=== PATIENT | female | born 1950 | race Caucasian/White ===

== ENCOUNTER 2023-11-22 18:45 | Emergency (ER) | payer BC ==
[~2023-11-22] VITALS: Ht 160 cm; Wt 77.1 kg
[2023-11-22 19:49] LABS: BASOPHILS # (AUTO) 0.1 X10'3 (0-0.2); BASOPHILS % (AUTO) 1.1 % (0-1); EOSINOPHILS # (AUTO) 0.1 X10'3 (0-0.9); EOSINOPHILS % (AUTO) 1.2 % (0-6); HEMATOCRIT 40.6 % (35.0-45.0); HEMOGLOBIN 13.9 g/dl (12.0-16.0); LYMPHOCYTES # (AUTO) 1.2 X10'3 (1.1-4.8); LYMPHOCYTES % (AUTO) 17.4 % (21-51); MEAN CORPUSCULAR HEMOGLOBIN 31.8 PG (27.0-31.0); MEAN CORPUSCULAR HGB CONC 34.2 g/dL (33.0-36.5); MEAN CORPUSCULAR VOLUME 93.1 FL (78-98); MEAN PLATELET VOLUME 9.3 FL (7.4-10.4); MONOCYTES # (AUTO) 0.7 X10'3 (0-0.9); MONOCYTES % (AUTO) 10.3 % (2-12); PLATELET COUNT 151 X10'3 (140-440); RED BLOOD COUNT 4.36 X10'6 (4.20-5.60); RED CELL DISTRIBUTION WIDTH 13.3 % (11.5-14.5); WHITE BLOOD COUNT 7.2 X10'3 (4.5-11.0)
[2023-11-22 20:03] LABS: ALANINE AMINOTRANSFERASE 27 U/L (12-78); ALBUMIN 4.2 G/DL (3.4-5.0); ALBUMIN/GLOBULIN RATIO 1.2 (1.1-1.5); ALKALINE PHOSPHATASE 81 IU/L (46-116); ANION GAP 8 (8-16); ASPARTATE AMINO TRANSFERASE 20 U/L (10-37); BILIRUBIN,TOTAL 0.5 MG/DL (0.1-1.0); BLOOD UREA NITROGEN 8 MG/DL (7-18); BUN/CREATININE RATIO 13.6 (10.0-20.0); CALCIUM 9.7 MG/DL (8.5-10.1); CHLORIDE 99 MMOL/L (99-107); CREATININE 0.59 MG/DL (0.40-0.90); GLUCOSE 108 MG/DL (70-104); LIPASE 23 U/L (16-77); POTASSIUM 3.9 MMOL/L (3.5-5.1); SODIUM 133 MMOL/L (135-145); TOTAL CARBON DIOXIDE 26.3 MMOL/L (24-32); TOTAL PROTEIN 7.8 G/DL (6.4-8.2); eCRCL 71 ML/MIN; eGFR > 90 ML/MIN
[2023-11-22] MEDS ORDERED: iohexol 300mg/ml 100ml inj. ONE (20:13)
[2023-11-22 20:27] LABS: MAGNESIUM 1.8 MG/DL (1.5-2.4); PRO BRAIN NATRIURETIC PEPTIDE 118 PG/ML (0-125)
[2023-11-22 20:32] LABS: BILIRUBIN,URINE NEGATIVE (Neg); CLARITY,URINE CLEAR (Clear); COLOR,URINE STRAW (Yellow); GLUCOSE, URINE NEGATIVE (Neg); KETONES,URINE NEGATIVE (Neg); LEUKOCYTE ESTERASE ,URINE SMALL (Neg); NITRITES, URINE NEGATIVE (Neg); OCCULT BLOOD,URINE NEGATIVE (Neg); PROTEIN,URINE NEGATIVE (Neg); UROBILINOGEN,URINE 0.2 E.U/dL (0.2-1.0)
[2023-11-22 20:33] LABS: UA COLLECTION TYPE CLN CATCH MIDSTREAM
[2023-11-22 20:40] LABS: BACTERIA,URINE FEW /HPF (Neg); MUCUS STRANDS NONE SEEN /LPF (Neg); RBC,URINE 0-2 /HPF (0-2); SQUAMOUS EPITHELIAL CELL,UR FEW /LPF (FEW)
[2023-11-22 20:44] LABS: TRANSITIONAL EPI CELLS,URINE FEW /HPF
[2023-11-22 21:53] VITALS: BP 137/70; PULSE 66; RESP 16; TEMP 97.8; O2SAT 99
== END 2023-11-22 21:56 | disposition home or self-care (01) ==
LOC: ER 18:50
DX: R10.31 Right lower quadrant pain (principal); I10 Essential (primary) hypertension; Z88.2 Allergy status to sulfonamides; Z88.1 Allergy status to other antibiotic agents; Z88.5 Allergy status to narcotic agent; Z98.890 Other specified postprocedural states; Z90.710 Acquired absence of both cervix and uterus
CPT/HCPCS: 36415; 71045; 74177; 80053; 81001; 83605; 83690; 83735; 83880; 84484; 85025; 87088; 93005; 99285; J3490; Q9967

== ENCOUNTER 2023-12-18 09:59 | Outpatient (CLI) | payer BC | END 2023-12-18 23:59 | disposition home or self-care (01) | LOC: RAD 09:59 | PROVIDERS: ATTEND Family Medicine | DX: I08.8 Other rheumatic multiple valve diseases (principal) | CPT/HCPCS: 93306 ==

== ENCOUNTER 2024-03-05 10:24 | Outpatient (CLI) | payer BC | END 2024-03-05 23:59 | disposition home or self-care (01) | LOC: VAS 10:24 | PROVIDERS: ATTEND Family Medicine | DX: M79.605 Pain in left leg (principal) | CPT/HCPCS: 93971 ==

== ENCOUNTER 2025-03-21 14:07 | Emergency (ER) | payer BC, OTHER ==
[~2025-03-21] VITALS: Ht 170.2 cm; Wt 80.2 kg
[2025-03-21 14:14] VITALS: TEMP 98.2
--- NOTE | 2025-03-21 14:21 | ELECTROCARDIOGRAPH REPORT ---
[facility] Test Date: 2025-03-21 Test Time: 14:16:43 Pat Name: DEREK REGAN Department: [facility]ER Patient ID: [facility]-[id number] Room: Gender: F Rehab Nursing Tech: : [id number] Requested By: JOSE LUIS RIVERA Order Number: [id number] Reading MD: Measurements Intervals [place] Rate: 77 P: 47 MN: 134 QRS: 10 QRSD: 99 T: -8 QT: 384 QTc: 435 Interpretive Statements Sinus rhythm Atrial premature complex Probable left atrial enlargement Low voltage, precordial leads Borderline repolarization abnormality Please click the below link to view image of tracing.
--- NOTE | 2025-03-21 14:29 | Physician Documentation ---
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 Subjective complaints vague, she states she feels weird. Denies shortness of breath or chest pain. Tenderness to her axillary region and posterior shoulder to touch. Tetanus within 5 years: No Medication Reconciliation Allergies: Coded Allergies: Sulfa (Sulfonamide Antibiotics) (Verified Allergy, Severe, RASH,HIVES, 03/21/25) amoxicillin (Verified Allergy, Severe, RASH,HIVES SWOLLEN FACE, 03/21/25) ciprofloxacin (Verified Allergy, Severe, JOINT,BONE ACHES, 03/21/25) codeine (Verified Allergy, Severe, NAUSEA,VOMMITING, 03/21/25) morphine (Verified Allergy, Intermediate, NAUSEA,VOMMITING, 03/21/25) pantoprazole (Verified Allergy, Unknown, BONE,JOINT PAIN, 03/21/25) Past Medical History Past Medical History: Hypertension, Constipation, *ENDOCRINE* Past Surgical History: appendectomy, hysterectomy, other Lives In: Home Review of Systems All Other Systems at this time: Reviewed and Negative Cardiovascular: Reports: see HPI Musculoskeletal: Reports: see HPI Physical Exam Vital Signs: Temperature: 98.2, Heart Rate: 76, Respiratory Rate: 16, BP: 183/65, Pulse Oximetry: 100, Weight: 80.200 Oxygen Flow Rate: 0 General Appearance: alert, WD/WN, no apparent distress Neck: normal inspection, full range of motion Respiratory: lungs clear, normal breath sounds, no respiratory distress Cardiovascular: normal peripheral pulses, regular rate, rhythm Shoulder: normal inspection, no evidence of injury, normal ROM Neurologic Rack Washer strength bilaterally to upper extremities good push pulls, no facial asymmetry, normal ambulation Progress Results/Orders Results/Orders Vital Signs 03/21/25 14:14 Temp 98.2 Pulse 76 Resp 16 B/P (MAP) 183/65 Pulse Ox 100 O2 Flow Rate 0 Laboratory Tests Test 03/21/25 14:26 White Blood Count 8.1 Red Blood Count 4.56 Hemoglobin 13.9 Hematocrit 41.7 Mean Corpuscular Volume 91.6 Mean Corpuscular Hemoglobin 30.5 Mean Corpuscular Hemoglobin Concent 33.3 Red Cell Distribution Width 13.4 Platelet Count 172 Mean Platelet Volume 10.2 Neutrophils (%) (Auto) 73.2 Lymphocytes (%) (Auto) 15.4 L Monocytes (%) (Auto) 10.0 Eosinophils (%) (Auto) 0.7 Basophils (%) (Auto) 0.7 Neutrophils # (Auto) 5.9 Lymphocytes # (Auto) 1.2 Monocytes # (Auto) 0.8 Eosinophils # (Auto) 0.1 Basophils # (Auto) 0.1 CBC Comment Sodium Level 140 Potassium Level 4.0 Chloride Level 100 Carbon Dioxide Level 24.7 Anion Gap 15 Blood Urea Nitrogen 15 Creatinine 0.67 Estimated GFR/1.73 m2 86 BUN/Creatinine Ratio 22.4 H Glucose Level 107 H Calcium Level 9.5 Troponin I High Sensitivity 4 Pro-B-Type Natriuretic Peptide 68 Albumin 4.2 Chemistry Comments EKG/XRAY/CT/US/VASC/MRI EKG : Additional Comment Sinus rhythm at 77 normal axis no acute ST abnormalities Chest X-Ray : Additional Comments CHEST RADIOGRAPH Indication: CP Technique: Single frontal view of the chest was obtained COMPARISON: DI CHEST,SINGLE VIEW on DOS: 11/22/23 FINDINGS: Lines and Tubes: None Lungs: Clear Pleura: No effusion. No pneumothorax. Cardiomediastinal contours: Unremarkable Bones: Unremarkable IMPRESSION: No acute disease. Heart Score: Heart Score Response (Comments) Value History Slightly Suspicious 0 EKG Normal 0 Age >65 2 Risk Factors 1 or 2 risk factors 1 Troponin Normal limit 0 Total 3 Medical Decision Making Findings Differentials include musculoskeletal pain and strain to the shoulder and chest region she does have difficulty sleeping on the right side so she often sleeps on the left side waking up this morning with his pain. Heart score 3 with 1 risk factor of hypertension. Patient does not have a antique dealer but has called Dr. Blancas's office she can self refer without her primary care provider and is going to see them Monday to start a new patient packet patient desires to go home. Labs EKG and chest x-ray are reassuring. Departure Time of Disposition: 17:37 Disposition: 01 HOME / SELF CARE / HOMELESS Impression: Primary Impression: Arm pain, left Additional Impressions: Arm paresthesia, left Axillary tenderness Condition: Stable Discharge Instructions: Muscle Strain, [id number] Additional Instructions: As discussed during our encounter your troponin or heart lab was negative in your EKG reassuring. Follow-up with Dr. Dela Cruz's office for new patient paperwork packet and cardiac workup as desired. Closely monitor for any new or worsening symptoms and return to the ER. Referrals: NO PRIMARY CARE PROVIDER (PCP) Education Educated: Patient, Family Educated regarding: diagnosis, treatment, need for follow up Signature Scribe Signature: no scribe Attestation: The note accurately reflects work and decisions made by me.Lorena FLANAGAN 03/21/25 17:39 LORENA DRAPER NP Mar 21, 2025 14:29
--- NOTE | 2025-03-21 14:42 | RADIOLOGY REPORT ---
CHEST RADIOGRAPH Indication: CP Technique: Single frontal view of the chest was obtained COMPARISON: DI CHEST,SINGLE VIEW on DOS: 11/22/23 FINDINGS: Lines and Tubes: None Lungs: Clear Pleura: No effusion. No pneumothorax. Cardiomediastinal contours: Unremarkable Bones: Unremarkable IMPRESSION: No acute disease.
[2025-03-21 14:46] LABS: BASOPHILS # (AUTO) 0.1 X10'3 (0-0.2); BASOPHILS % (AUTO) 0.7 % (0-1); EOSINOPHILS # (AUTO) 0.1 X10'3 (0-0.9); EOSINOPHILS % (AUTO) 0.7 % (0-6); HEMATOCRIT 41.7 % (35.0-45.0); HEMOGLOBIN 13.9 g/dl (12.0-16.0); LYMPHOCYTES # (AUTO) 1.2 X10'3 (1.1-4.8); LYMPHOCYTES % (AUTO) 15.4 % (21-51); MEAN CORPUSCULAR HEMOGLOBIN 30.5 PG (27.0-31.0); MEAN CORPUSCULAR HGB CONC 33.3 g/dL (33.0-36.5); MEAN CORPUSCULAR VOLUME 91.6 FL (78-98); MEAN PLATELET VOLUME 10.2 FL (7.4-10.4); MONOCYTES # (AUTO) 0.8 X10'3 (0-0.9); NEUTROPHILS # (AUTO) 5.9 X10'3 (1.8-7.7); NEUTROPHILS % (AUTO) 73.2 % (42-75); PLATELET COUNT 172 X10'3 (140-440); RED BLOOD COUNT 4.56 X10'6 (4.20-5.60); RED CELL DISTRIBUTION WIDTH 13.4 % (11.5-14.5); WHITE BLOOD COUNT 8.1 X10'3 (4.5-11.0)
[2025-03-21 15:16] LABS: ALBUMIN 4.2 G/DL (3.4-5.0); ANION GAP 15 (8-16); BLOOD UREA NITROGEN 15 MG/DL (7-18); BUN/CREATININE RATIO 22.4 (10.0-20.0); CALCIUM 9.5 MG/DL (8.5-10.1); CHLORIDE 100 MMOL/L (99-107); CREATININE 0.67 MG/DL (0.40-0.90); GLUCOSE 107 MG/DL (70-104); PRO BRAIN NATRIURETIC PEPTIDE 68 PG/ML (0-125); SODIUM 140 MMOL/L (135-145); TOTAL CARBON DIOXIDE 24.7 MMOL/L (24-32); eCRCL 65 ML/MIN; eGFR 86 ML/MIN
[2025-03-21 17:56] VITALS: BP 165/75; PULSE 76; RESP 15; O2SAT 97
== END 2025-03-21 17:58 | disposition home or self-care (01) ==
LOC: ER 14:07
DX: M79.602 Pain in left arm (principal); R20.2 Paresthesia of skin; R06.02 Shortness of breath
CPT/HCPCS: 36415; 71045; 80048; 83880; 84484; 85025; 93005; 99285